=== PATIENT | female | born 1985 | race Caucasian/White ===

== ENCOUNTER → 2020-02-24 | Outpatient (CLI) | payer OTHER ==
[2020-02-24 15:14] LABS: BASO # 0.1 (0.02-0.10); EOS # 0.5 (0.04-0.40); HEMATOCRIT 35.5 % (37.0-47.0); HEMOGLOBIN 10.4 g/dL (12.5-16.0); LYMPH# 2.4 (1.50-4.00); MONO # 0.8 (0.20-0.80); NEU # 5.1 (1.40-6.50); PLATELET COUNT 413 K/mm3 (130-400); RED BLOOD COUNT 5.18 M/mm3 (4.10-5.30); RED CELL DISTRIBUTION WIDTH 17.5 % (11.5-14.5); WHITE BLOOD COUNT 8.9 K/mm3 (4.8-10.8)
[2020-02-24 15:16] LABS: MEAN CELL VOLUME 69 fl (78-100); MEAN CORPUSCULAR HEMOGLOBIN 20 pg (27-31); MEAN CORPUSCULAR HGB CONC 29 g/dL (33-37)
[2020-02-24 15:24] LABS: POTASSIUM 3.9 mmol/L (3.5-5.1)
[2020-02-24 15:25] LABS: ALBUMIN 4.1 g/dL (3.5-5.0)
[2020-02-24 15:26] LABS: CALCIUM 9.5 mg/dL (8.3-10.5)
[2020-02-24 15:27] LABS: TOTAL PROTEIN 7.2 g/dL (6.4-8.3)
[2020-02-24 15:29] LABS: TOTAL BILIRUBIN 0.2 mg/dL (0.2-1.2)
== END ==
LOC: LAB 15:02
PROVIDERS: Physician Assistant
DX: Z76.89 Persons encountering health services in other specified circumstances (principal); N92.0 Excessive and frequent menstruation with regular cycle; K21.9 Gastro-esophageal reflux disease without esophagitis; F32.9 Major depressive disorder, single episode, unspecified; Z87.442 Personal history of urinary calculi

== ENCOUNTER → 2020-05-11 | Outpatient (CLI) | payer OTHER | LOC: RAD 15:38 | DX: M54.2 Cervicalgia (principal) ==

== ENCOUNTER → 2020-05-25 | Outpatient (CLI) | payer OTHER | LOC: LAB 14:08 | DX: N39.0 Urinary tract infection, site not specified (principal) ==

== ENCOUNTER → 2020-06-20 | Outpatient (CLI) | payer OTHER | LOC: LAB 11:30 | DX: N39.0 Urinary tract infection, site not specified (principal) ==